=== PATIENT | female | born 1995 | race Caucasian/White ===

== ENCOUNTER → 2017-06-16 | Outpatient (CLI) | payer OTHER ==
[2017-06-16 13:59] LABS: FREE T4 0.94 NG/DL (0.76-1.46)
== END ==
LOC: M LAB 12:58
PROVIDERS: ATTEND Physician Assistant
DX: F32.1 Major depressive disorder, single episode, moderate (principal)

== ENCOUNTER → 2017-10-26 | Outpatient (CLI) | payer OTHER | LOC: M RAD 08:48 | DX: R10.11 Right upper quadrant pain (principal) | CPT/HCPCS: 76705 ==

== ENCOUNTER → 2017-11-11 | Outpatient (CLI) | payer OTHER ==
[2017-11-11 09:43] LABS: BASO # 0.1 10^3/uL (0.0-0.2); EOS # 0.2 10^3/uL (0.0-0.50); EOS % 3.3 % (0.0-3.0); HEMATOCRIT 37.7 % (36.0-47.0); HEMOGLOBIN 12.8 g/dl (12.0-15.5); IMMATURE GRANULOCYTE % 0.2 % (0-3.0); LYMPH # 2.2 10^3/uL (1.5-6.5); LYMPH % 45.6 % (24.0-44.0); MEAN CORPUSCULAR HEMOGLOBIN 31.1 pg (27.0-33.0); MEAN CORPUSCULAR VOLUME 91.7 fl (80.0-96.0); MONO # 0.5 10^3/uL (0.0-0.8); MONO % 10.4 % (0.0-5.0); NEUTROPHILS # 1.9 10^3/uL (1.8-7.7); NEUTROPHILS % 39.5 % (36.0-66.0); PLATELET COUNT, AUTOMATED 230 10^3/uL (150-450); RED BLOOD COUNT 4.11 10^6/uL (4.00-5.40); RED CELL DISTRIBUTION WIDTH 11.9 % (11.5-14.5); WHITE BLOOD COUNT 4.9 10^3/uL (4.0-10.0)
[2017-11-11 09:54] LABS: CONTROL LINE MONO INT CTR LINE PRESENT; MONO SCRN NEGATIVE (NEGATIVE)
[2017-11-11 10:02] LABS: ALBUMIN 4.2 GM/DL (3.2-5.2); ALBUMIN/GLOBULIN RATIO 1.31 (1.00-1.93); ALKALINE PHOSPHATASE 69 U/L (45-117); ALT/SGPT 24 U/L (12-78); AMYLASE 35 U/L (25-115); ANION GAP 5 MEQ/L (8-16); AST/SGOT 15 U/L (7-37); BILIRUBIN,TOTAL 1.1 MG/DL (0.2-1.0); BLOOD UREA NITROGEN 16 MG/DL (7-18); CARBON DIOXIDE LEVEL 28 MEQ/L (21-32); CHLORIDE LEVEL 109 MEQ/L (98-107); CREATININE FOR GFR 0.69 MG/DL (0.55-1.30); GLOMERULAR FILTRATION RATE > 60.0 (>60); GLUCOSE, FASTING 71 MG/DL (70-100); LIPASE 169 U/L (73-393); POTASSIUM SERUM 4.2 MEQ/L (3.5-5.1); SODIUM LEVEL 142 MEQ/L (136-145); TOTAL PROTEIN 7.4 GM/DL (6.4-8.2)
== END ==
LOC: M LAB 08:48
DX: R10.11 Right upper quadrant pain (principal); K59.00 Constipation, unspecified
CPT/HCPCS: 74019

== ENCOUNTER → 2017-11-16 | Outpatient (CLI) | payer OTHER | LOC: M RAD 08:00 | DX: R10.11 Right upper quadrant pain (principal) | CPT/HCPCS: J2805 ==

== ENCOUNTER → 2018-05-31 | Outpatient (REF) | payer OTHER ==
[2018-05-31 17:00] LABS: APPEARANCE, URINE HAZY (CLEAR); BACTERIA, URINE AUTO 1+ (NEGATIVE); BILIRUBIN, URINE AUTO NEGATIVE (NEGATIVE); BLOOD, URINE BLOOD 1+ (NEGATIVE); COLOR, URINE YELLOW (YELLOW); GLUCOSE, URINE (UA) AUTO NEGATIVE (NEGATIVE); KETONE, URINE AUTO TRACE mg/dL (NEGATIVE); LEUKOCYTE ESTERASE, URINE AUTO 2+ (NEGATIVE); MUCUS, URINE SMALL (NEGATIVE); NITRITE, URINE AUTO NEGATIVE (NEGATIVE); PROTEIN, URINE AUTO NEGATIVE (NEGATIVE); RBC, URINE AUTO 2 /HPF (0-3); SPECIFIC GRAVITY URINE AUTO 1.024 (1.002-1.035); SQUAMOUS EPITHELIAL CELL UR AU 3 /HPF (0-6); WBC, URINE AUTO 5 /HPF (0-3)
== END ==
LOC: M LAB REF 16:03
DX: N39.0 Urinary tract infection, site not specified (principal)

== ENCOUNTER → 2018-07-26 | Outpatient (REF) | payer OTHER | LOC: M LAB REF 17:17 | PROVIDERS: ATTEND Surgery | DX: L98.9 Disorder of the skin and subcutaneous tissue, unspecified (principal) | CPT/HCPCS: 11106; 11107; 88305; G0463 ==

== ENCOUNTER 2018-09-01 10:44 | Emergency (ER) | payer OTHER ==
[~2018-09-01] VITALS: Ht 162.6 cm; Wt 71.8 kg
[2018-09-01 10:44] VITALS: BP 110/68
[2018-09-01] MEDS ORDERED: CITA40TA4 (10:54)
[2018-09-01] MEDS ORDERED: BUPR300T34 (10:54)
[2018-09-01] MEDS ORDERED: NEOSPORIN OINT 0.9 GM PKT (FLOOR STOCK) TOP ONE (11:15)
[2018-09-01 11:16] LABS: BASO # 0.1 10^3/uL (0.0-0.2); BASO % 1.1 % (0.0-1.0); EOS # 0.1 10^3/uL (0.0-0.50); EOS % 2.5 % (0.0-3.0); HEMATOCRIT 37.8 % (36.0-47.0); HEMOGLOBIN 12.7 g/dl (12.0-15.5); LYMPH # 2.1 10^3/uL (1.5-6.5); LYMPH % 38.3 % (24.0-44.0); MEAN CORPUSCULAR HEMOGLOBIN 30.6 pg (27.0-33.0); MEAN CORPUSCULAR HGB CONC 33.6 g/dl (32.0-36.5); MEAN CORPUSCULAR VOLUME 91.1 fl (80.0-96.0); MONO # 0.5 10^3/uL (0.0-0.8); MONO % 8.7 % (0.0-5.0); NEUTROPHILS # 2.7 10^3/uL (1.8-7.7); NEUTROPHILS % 49.2 % (36.0-66.0); PLATELET COUNT, AUTOMATED 264 10^3/uL (150-450); RED BLOOD COUNT 4.15 10^6/uL (4.00-5.40); WHITE BLOOD COUNT 5.5 10^3/uL (4.0-10.0)
[2018-09-01 11:53] LABS: ALBUMIN 4.5 GM/DL (3.2-5.2); ALT/SGPT 21 U/L (12-78); BLOOD UREA NITROGEN 15 MG/DL (7-18); CALCIUM LEVEL 9.1 MG/DL (8.5-10.1); CARBON DIOXIDE LEVEL 28 MEQ/L (21-32); CHLORIDE LEVEL 107 MEQ/L (98-107); CREATININE FOR GFR 0.72 MG/DL (0.55-1.30); GLOMERULAR FILTRATION RATE > 60.0 (>60); GLUCOSE, FASTING 73 MG/DL (70-100); POTASSIUM SERUM 4.3 MEQ/L (3.5-5.1); SODIUM LEVEL 141 MEQ/L (136-145); TOTAL PROTEIN 7.5 GM/DL (6.4-8.2)
[2018-09-01 12:02] LABS: HEPATITIS B SURFACE ANTIBODY NEGATIVE (POSITIVE)
[2018-09-01 12:13] LABS: HEPATITIS B SURFACE ANTIGEN NEGATIVE (NEGATIVE)
[2018-09-01 12:41] LABS: HEPATITIS C VIRUS ABY INDEX < 0.0 INDEX (<0.8)
== END 2018-09-01 11:31 | disposition home or self-care (01) ==
LOC: M ED 10:44
DX: Z77.21 Contact with and (suspected) exposure to potentially hazardous body fluids (principal); Z79.899 Other long term (current) drug therapy

== ENCOUNTER → 2018-09-20 | Outpatient (REF) | payer OTHER ==
[~2018-09-20] MED LIST: BUPR300T34; CITA40TA4
== END ==
LOC: M SFHCLERA 11:32
PROVIDERS: ATTEND Physician Assistant
DX: R50.9 Fever, unspecified (principal)